=== PATIENT | female | born 1985 | race African-American/Black ===

== ENCOUNTER → 2016-10-28 19:00 | Emergency (ER) | payer SELFPAY ==
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
== END | disposition home or self-care (01) ==
LOC: CFTX 19:00
DX: S39.012A Strain of muscle, fascia and tendon of lower back, initial encounter (principal); S80.02XA Contusion of left knee, initial encounter; V43.62XA Car passenger injured in collision with other type car in traffic accident, initial encounter; Y92.410 Unspecified street and highway as the place of occurrence of the external cause
CPT/HCPCS: 72100; 73560; 99284